=== PATIENT | male | born 1990 | race Caucasian/White ===

== ENCOUNTER 2024-06-09 21:16 | Emergency (ER) | payer SELFPAY ==
[~2024-06-09] VITALS: Ht 172.7 cm; Wt 98.4 kg
[2024-06-09] MEDS: LORAZEPAM INJ 2 MG/ML VIAL IV ONE ×2 (22:24→23:27)
[2024-06-09] MEDS: LACTATED RINGER'S 1,000 ML IV ONE (22:25)
[2024-06-09] MEDS: ONDANSETRON HCL INJ 2MG/ML 2ML 2 MG/ML VIAL IV ONE (22:25)
[2024-06-09] MEDS: FAMOTIDINE 20 MG/2 ML VIAL IV ONE (22:37)
[2024-06-09 23:23] VITALS: PULSE 90; RESP 16; TEMP 98.9
[2024-06-09] MEDS ORDERED: ONDANSETRON ODT4 MG PO (23:25)
[2024-06-09] MEDS ORDERED: MULTI-VITAMIN1 EACH PO (23:25)
[2024-06-09] MEDS ORDERED: CHLORDIAZEPOXID25 MG PO (23:25)
[2024-06-09] MEDS ORDERED: BUTALB-ACETAMI1 EACH PO (23:25)
[2024-06-09] MEDS: DIPHENHYDRAMINE HCL INJ 50 MG/ML VIAL IV ONE (23:26)
[2024-06-09] MEDS: KETOROLAC TROMETHAMINE 30 MG/ML VIAL IV STA (23:47)
[2024-06-10 00:11] VITALS: BP 154/91; PULSE 90; RESP 16; O2SAT 98
== END 2024-06-10 00:12 | disposition home or self-care (01) ==
LOC: FSED 21:50
DX: R00.2 Palpitations (principal); F10.139 Alcohol abuse with withdrawal, unspecified; G43.909 Migraine, unspecified, not intractable, without status migrainosus; I10 Essential (primary) hypertension; R94.31 Abnormal electrocardiogram [ECG] [EKG]; Z98.84 Bariatric surgery status
CPT/HCPCS: 80053; 81003; 84484; 85025; 93005; 96374; 96375; 99284; J1200; J1885; J2060; J2405; J7121